=== PATIENT | female | born 2000 | race Caucasian/White ===

== ENCOUNTER 2023-04-10 14:17 | Outpatient (CLI) | payer BC, SELFPAY | END 2023-04-10 14:18 | disposition home or self-care (01) | LOC: NFLDREF 04-13 05:40 | PROVIDERS: Visit Provider Obstetrics & Gynecology | DX: Z11.3 Encounter for screening for infections with a predominantly sexual mode of transmission (principal); Z12.4 Encounter for screening for malignant neoplasm of cervix; N91.2 Amenorrhea, unspecified; N97.0 Female infertility associated with anovulation; E66.9 Obesity, unspecified; D35.2 Benign neoplasm of pituitary gland | CPT/HCPCS: 87491; 87591 ==